=== PATIENT | female | born 1985 | race Caucasian/White ===

== ENCOUNTER 2016-06-23 19:44 | Emergency (ER) | payer MEDICAID ==
--- NOTE | 2016-06-23 20:19 | Emergency Department Record ---
History of Present Illness - General Chief complaint: Eye Problem Stated complaint: FB IN R EYE Time Seen by Provider: 06/23/16 20:18 Source: Patient Mode of Arrival: Ambulatory Limitations: No limitations - History of Present Illness Initial comments: The patient is here due to having R eye irritation for 8 hours. She was in the shower this evening and felt like something got into the R eye. She then flushed it out and the FB feeling never went away. There is no eye pain or blurred vision but she thinks she may have scratched the eye. Additionally she has had one day of a dry cough, body aches, runny nose and low grade fever. The patient does wear contacts but has not had them in since yesterday. chief complaint: Eye pain Onset/Timin -: Days(s) Onset Description: Sudden Location: Right eye Place: Home If Injury: None Severity: Mild Severity scale (1-10): 6 If Pain, Quality: Aching Consistency: Constant Context: Contact lens use Associated Symptoms: None Treatments Prior to Arrival: Removed contact lens - Related Data Visual acuity (L) = 20/: 30 Visual acuity (R) = 20/: 30 With correction: No (wears cont) Previous Rx's Medication Instructions Recorded Oseltamivir Phosphate [Tamiflu] 75 mg PO BID #10 capsule 06/23/16 Allergies Allergy/AdvReac Type Severity Reaction Status Date / Time venlafaxine HCl Allergy RASH Verified 06/23/16 20:16 [From Effexor] Travel Screening - Travel/Exposure Within Last 30 Days Have you traveled within the last 30 days?: No - Travel/Exposure Within Last Year Have you traveled outside the [place] in the last year?: No - Additonal Travel Details Have you been exposed to anyone with a communicable illness?: No - Travel Symptoms Symptom Screening: None Review of Systems Constitutional: Reports: Malaise. Denies: Chills, Fever Eyes: Reports: Eye pain. Denies: Eye discharge ENT: Reports: Congestion. Denies: Throat pain Respiratory: Reports: Cough. Denies: Dyspnea Past Medical History - SOCIAL HISTORY Smoking Status: Current every day smoker Alcohol Use: Occassional Drug Use: None - RESPIRATORY Hx Respiratory Disorders: Yes Hx Bronchitis: Yes - CARDIOVASCULAR Hx Cardio Disorders: No - NEURO Hx Neuro Disorders: No - GI Hx GI Disorders: No - Hx Genitourinary Disorders: No - ENDOCRINE Hx Endocrine Disorders: Yes Hx Thyroid Disease: Yes - MUSCULOSKELETAL Hx Musculoskeletal Disorders: No - PSYCH Hx Psych Problems: Yes Hx Anxiety: Yes Hx Depression: Yes - HEMATOLOGY/ONCOLOGY Hx Hematology/Oncology Disorders: No Family Medical History Any Significant Family History?: Yes Family Hx Comment (NOT TO BE USED IN PLACE OF ITEMS BELOW): none known Physical Exam - General General Appearance: Alert, Oriented x3, Cooperative, No acute distress - Head Head exam: Atraumatic, Normocephalic, Normal inspection - Eye Eye exam: Normal appearance, PERRL, EOMI, Other (There is no FB on direct visualization and no FB with flipping the R upper eyelid. The cornea is clear with no flourescein uptake.) With correction: No (wears cont) - ENT ENT exam: Normal exam, Mucous membranes moist, Normal external ear exam, TM's normal bilaterally. negative: Normal orophraynx Nasal Exam: Normal inspection Throat exam: Tonsillar erythema. negative: Normal inspection, Tonsillomegaly - Neck Neck exam: Normal inspection, Full ROM. negative: Tenderness - Respiratory Respiratory exam: Normal lung sounds bilaterally. negative: Respiratory distress - Cardiovascular Cardiovascular Exam: Regular rate, Normal rhythm, Normal heart sounds Course Vital Signs 06/23/16 20:08 Temperature 99.2 F Pulse Rate 83 Respiratory 17 Rate Blood Pressure 119/74 Pulse Ox 97 - Reevaluation(s) Reevaluation #1: I did discuss the issues with the patient. It appears she may have irritated the eye in the shower. I do not see a scratch or any abrasion or FB at this time. Additionally she most likely has Influenza so we will place her on Tamiflu. 06/23/16 20:34 Disposition Disposition: Discharge Clinical Impression: Irritation of eye Disposition: Home, Self-Care Condition: (1) Good Instructions: Conjunctivitis (ED), Upper Respiratory Infection (ED) Additional Instructions: Please use the Emycin opth. ointment in the R eye 4 times a day for 4-5 days. Please see your PCP or an eye doctor if not better in 1-2 days. Please take the Tamiflu as directed. Return to the ER if worse. Prescriptions: Oseltamivir Phosphate [Tamiflu] 75 mg PO BID #10 capsule Forms: Patient Portal Access Time of Disposition: 20:38
[2016-06-23] MEDS ORDERED: PROPARACAINE HCL OPTH 15ML BTL OPTH ONE (20:21)
[2016-06-23] MEDS ORDERED: ERYTHROMYCIN OPTH OINT 3.5GM OPTH ONE (20:29)
== END 2016-06-23 20:51 | disposition home or self-care (01) ==
LOC: ER 19:44
DX: H57.11 Ocular pain, right eye (principal); R05 Cough; R09.89 Other specified symptoms and signs involving the circulatory and respiratory systems
CPT/HCPCS: 99282

== ENCOUNTER 2016-09-09 17:29 | Emergency (ER) | payer MEDICAID ==
[2016-09-09] MEDS ORDERED: CEFTRIAXONE SODIUM 1 GM in 0.9 % SODIUM CHLORIDE 100ML 100 ML IVPB ONE (17:47)
--- NOTE | 2016-09-09 17:54 | Emergency Department Record ---
History of Present Illness - General Chief complaint: Extremity Problem Stated complaint: L LEG RED Time Seen by Provider: 09/09/16 17:43 Source: Patient Mode of Arrival: Ambulatory Limitations: No limitations - History of Present Illness Initial comments: The patient is here due to L leg pain, swelling, and redness. It started in the L knee area a few days ago with slight swelling and redness but that resolved. Then yesterday she noticed that her L lower leg was red, itchy, and slightly painful. There has not been any reported fever, chills, or any trauma. The patient denies any thigh or calf pain and also denies any CP, SOB, or AUBREY. She has no hx of PE, DVT, and no hx of any clotting disorders. MD Complaint: Extremity swelling Onset/Timin -: Days(s) Location: Left, Lower Leg History of Same: No Radiation: Distal Severity scale (1-10): 8 Quality: Burning, Stabbing Consistency: Constant Improves with: Nothing Worsens with: Nothing Associated Symptoms: Denies other symptoms - Related Data Previous Rx's Medication Instructions Recorded Cephalexin [Keflex] 500 mg PO QID #28 cap 09/09/16 Allergies Allergy/AdvReac Type Severity Reaction Status Date / Time venlafaxine HCl Allergy Intermediate RASH Verified 09/09/16 17:40 [From Effexor] Travel Screening - Travel/Exposure Within Last 30 Days Have you traveled within the last 30 days?: No Review of Systems Constitutional: Denies: Chills, Fever, Malaise Eyes: Denies: Eye discharge ENT: Denies: Congestion, Throat pain Respiratory: Denies: Cough, Dyspnea Past Medical History - SOCIAL HISTORY Smoking Status: Current every day smoker Alcohol Use: None Drug Use: None - RESPIRATORY Hx Respiratory Disorders: Yes Hx Bronchitis: Yes - CARDIOVASCULAR Hx Cardio Disorders: No - NEURO Hx Neuro Disorders: No - GI Hx GI Disorders: No - Hx Genitourinary Disorders: No - ENDOCRINE Hx Endocrine Disorders: Yes Hx Thyroid Disease: Yes - MUSCULOSKELETAL Hx Musculoskeletal Disorders: No - PSYCH Hx Psych Problems: Yes Hx Anxiety: Yes Hx Depression: Yes - HEMATOLOGY/ONCOLOGY Hx Hematology/Oncology Disorders: No Family Medical History Any Significant Family History?: No Family Hx Comment (NOT TO BE USED IN PLACE OF ITEMS BELOW): none known Physical Exam - General General Appearance: Alert, Oriented x3, Cooperative, No acute distress - Head Head exam: Atraumatic, Normocephalic, Normal inspection - Eye Eye exam: Normal appearance, PERRL - Respiratory Respiratory exam: Normal lung sounds bilaterally. negative: Respiratory distress - Cardiovascular Cardiovascular Exam: Regular rate, Normal rhythm, Normal heart sounds - Extremities Extremities exam: Full ROM, Normal capillary refill, Tenderness (The erythematous areas of the L lower leg are slighty tender and warm. There are no wounds evident.), Other (The L lower leg is NVI.). negative: Normal inspection (There is a lacy erythematous rash to the L lower leg below the calf posterior > anterior.), Calf tenderness (The calf is nontender with a neg Melanie's sign. There is no thigh or posterior knee tenderness.), Joint swelling, Pedal edema Course Vital Signs 09/09/16 17:32 Temperature 98.7 F Pulse Rate 97 H Respiratory 20 Rate Blood Pressure 131/97 Pulse Ox 99 - Reevaluation(s) Reevaluation #1: The patient is doing very well at this time. She is resting comfortably and we are waiting on the leg doppler results. I did discuss the lab results with the patient and the need for F/U. 09/09/16 18:44 Medical Decision Making - Data Complexity MDM Data: Labs Ordered and/or Reviewed, X-Ray Ordered and/or Reviewed - Lab Data Result diagrams: 09/09/16 17:55 09/09/16 17:55 - Radiology Data Radiology results: Report reviewed (L Leg Venous Doppler: Neg) Disposition Disposition: Discharge Clinical Impression: Cellulitis of left lower extremity Disposition: Home, Self-Care Condition: (1) Good Instructions: Cellulitis (ED) Additional Instructions: Please take Tylenol or Motrin for pain. Start the Keflex this evening. Use warm compresses and elevate the leg for the next day and a half. Please see your PCP for recheck later this week. Please return to the ER for any increased pain, swelling, redness or fever. Prescriptions: Cephalexin [Keflex] 500 mg PO QID #28 cap Forms: Patient Portal Access Time of Disposition: 18:47
[2016-09-09 18:00] LABS: BASO % 0.3 % (0-6); EOS % 1.6 % (0-6); GRAN % 55.4 % (47-80); HEMATOCRIT 37.4 % (35.0-47.0); HEMOGLOBIN 12.3 gm/dl (11.6-16.0); LYMPH % 34.4 % (16-45); MEAN CELL VOLUME 89.9 fl (81-97); MEAN CORPUSCULAR HEMOGLOBIN 29.6 pg (27-33); MEAN CORPUSCULAR HGB CONC 32.9 g/dl (32-36); MEAN PLATELET VOLUME 9.4 fl (7.4-10.4); MONO % 8.3 % (0-9); PLATELET COUNT 374 K/uL (130-400); RED BLOOD COUNT 4.16 M/uL (3.80-5.40); RED CELL DISTRIBUTION WIDTH 12.5 % (11.5-14.5)
[2016-09-09 18:14] LABS: BLOOD UREA NITROGEN 5 mg/dL (7-17); C-REACTIVE PROTEIN 1.3 mg/dL (0.0-0.9); CREATININE 0.6 mg/dL (0.52-1.04); EST GLOMERULAR FILTRATION RATE > 60 ml/min; GLUCOSE,RANDOM 91 mg/dL (70-110)
[2016-09-09] MEDS ORDERED: CEPHALEXIN 500 MG CAPSULE PO STA (19:04)
--- NOTE | 2016-09-09 19:54 | Emergency Department Record ---
History of Present Illness - General Chief complaint: Extremity Problem Stated complaint: L LEG RED Time Seen by Provider: 09/09/16 17:43 Source: Patient Mode of Arrival: Ambulatory Limitations: No limitations - History of Present Illness Onset/Timin -: Days(s) Location: Left, Lower Leg History of Same: No Radiation: Distal Severity scale (1-10): 8 Quality: Burning, Stabbing Consistency: Constant Improves with: Nothing Worsens with: Nothing Associated Symptoms: Denies other symptoms - Related Data Previous Rx's Medication Instructions Recorded Cephalexin [Keflex] 500 mg PO QID #28 cap 09/09/16 Allergies Allergy/AdvReac Type Severity Reaction Status Date / Time venlafaxine HCl Allergy Intermediate RASH Verified 09/09/16 17:40 [From Effexor] Travel Screening - Travel/Exposure Within Last 30 Days Have you traveled within the last 30 days?: No Review of Systems Constitutional: Denies: Chills, Fever, Malaise Eyes: Denies: Eye discharge ENT: Denies: Congestion, Throat pain Respiratory: Denies: Cough, Dyspnea Past Medical History - SOCIAL HISTORY Smoking Status: Current every day smoker Alcohol Use: None Drug Use: None - RESPIRATORY Hx Respiratory Disorders: Yes Hx Bronchitis: Yes - CARDIOVASCULAR Hx Cardio Disorders: No - NEURO Hx Neuro Disorders: No - GI Hx GI Disorders: No - Hx Genitourinary Disorders: No - ENDOCRINE Hx Endocrine Disorders: Yes Hx Thyroid Disease: Yes - MUSCULOSKELETAL Hx Musculoskeletal Disorders: No - PSYCH Hx Psych Problems: Yes Hx Anxiety: Yes Hx Depression: Yes - HEMATOLOGY/ONCOLOGY Hx Hematology/Oncology Disorders: No Family Medical History Any Significant Family History?: No Family Hx Comment (NOT TO BE USED IN PLACE OF ITEMS BELOW): none known Physical Exam - General Limitations: No limitations Course Vital Signs 09/09/16 09/09/16 17:32 19:02 Temperature 98.7 F Pulse Rate 97 H Pulse Rate [ 77 Pulse Ox Probe] Respiratory 20 20 Rate Blood Pressure 131/97 Blood Pressure 117/77 [Left Arm] Pulse Ox 99 99 - Reevaluation(s) Reevaluation #1: 09/09/16 19:52 Venous Doppler LLE: Questionable small thrombus in the distal calf vein adjacent to the ankle, no evidence for DVT to the left lower extremity. Patient was updated on her venous doppler report that is negative for DVT but possible superficial thrombus may be present adjacent to the ankle, recommended NSAIDs in addition to Keflex for treatment of the patient's symptoms with return for any worsening of her symptoms. Medical Decision Making - Lab Data Result diagrams: 09/09/16 17:55 09/09/16 17:55 Lab Results 09/09/16 09/09/16 Range/Units 17:55 17:55 WBC 12.0 (4.2-12.2) K/uL RBC 4.16 (3.80-5.40) M/uL Hgb 12.3 (11.6-16.0) gm/dl Hct 37.4 (35.0-47.0) % MCV 89.9 (81-97) fl MCH 29.6 (27-33) pg MCHC 32.9 (32-36) g/dl RDW 12.5 (11.5-14.5) % Plt Count 374 (130-400) K/uL MPV 9.4 (7.4-10.4) fl Gran % 55.4 (47-80) % Lymphocytes % 34.4 (16-45) % Monocytes % 8.3 (0-9) % Eosinophils % 1.6 (0-6) % Basophils % 0.3 (0-6) % Sodium 139 (136-145) mmol/L Potassium 3.7 (3.5-5.1) mmol/L Chloride 103 (98-107) mmol/L Carbon Dioxide 27.0 (22-30) mmol/L Anion Gap 9.0 (7-16) BUN 5 L (7-17) mg/dL Creatinine 0.6 (0.52-1.04) mg/dL Estimated GFR > 60 ml/min Random Glucose 91 (70-110) mg/dL Calcium 9.4 (8.5-10.1) mg/dL C-Reactive Protein 1.3 H (0.0-0.9) mg/dL Disposition Clinical Impression: Left leg cellulitis Instructions: Cellulitis (ED) Additional Instructions: Please take Tylenol or Motrin for pain. Start the Keflex this evening. Use warm compresses and elevate the leg for the next day and a half. Please see your PCP for recheck later this week. Please return to the ER for any increased pain, swelling, redness or fever. Prescriptions: Cephalexin [Keflex] 500 mg PO QID #28 cap Forms: Patient Portal Access
--- NOTE | 2016-09-17 08:01 | US VENOUS DOPPLER REPORT ---
EXAM: DUPLEX DOPPLER ULTRASOUND EXAMINATION OF THE LEFT LOWER EXTREMITY HISTORY: PATIENT HAS PAIN IN THE LEFT LOWER EXTREMITY. TECHNIQUE: Real-time mcgee scale and Duplex Doppler ultrasound examination of the left lower extremity veins was performed. FINDINGS: The contour, caliber, flow, compression and augmentation of the left common femoral, greater saphenous, superficial femoral, popliteal, posterior tibial, peroneal, and anterior tibial veins are within normal limits. There is no sonographic evidence of a deep venous thrombosis within these structures. Within the distal left calf, in the region of pain along the posterior aspect of the ankle, there is diminished flow on the Duplex Doppler evaluation within the region of the anterior wall. This finding may represent a thrombus, however , compressibility in this region is limited. IMPRESSION: 1. WITHIN THE DISTAL LEFT CALF VEIN, ADJACENT TO THE ANKLE, IN THE REGION OF CONCERN, THERE MAY BE A QUESTIONABLE SMALL VENOUS THROMBUS. FULL EVALUATION OF THIS REGION IS LIMITED DUE TO LACK OF COMPRESSIBILITY. 2. OTHERWISE, THERE IS NO SONOGRAPHIC EVIDENCE OF A DEEP VENOUS THROMBOSIS WITHIN THE MAJOR LEFT LOWER EXTREMITY DEEP VENOUS STRUCTURES DISCUSSED ABOVE. JOB NUMBER: [id number] [facility]
== END 2016-09-09 19:57 | disposition home or self-care (01) ==
LOC: ER 17:29
DX: L03.116 Cellulitis of left lower limb (principal); M79.662 Pain in left lower leg
CPT/HCPCS: 80048; 85025; 86140; 96374; 99284

== ENCOUNTER 2016-09-10 12:09 | Emergency (ER) | payer MEDICAID ==
--- NOTE | 2016-09-10 13:24 | Emergency Department Record ---
History of Present Illness - General Chief Complaint: Recheck - Other Stated Complaint: RECHECK LEG Time Seen by Provider: 09/10/16 12:47 Source: Patient Mode of arrival: Ambulatory Limitations: No limitations - History of Present Illness Initial Comments: recheck cellulitis. pt feels in some ways it is better and some ways it is worse. rash is painful. pt has no idea how she got it. Complaint: Wound re-check Onset/Timin -: Days(s) Initial Visit For: Other Returns Today for: Cellulitis follow-up Symptoms Since Prior Visit: Worsening redness Associated Symptoms: Nausea Treatments Prior to Arrival: Given antibiotics on initial visit - Related Data Previous Rx's Medication Instructions Recorded Cephalexin [Keflex] 500 mg PO QID #28 cap 09/09/16 Sulfamethoxazole/Trimethoprim 1 each PO BID #20 tablet 09/10/16 [Bactrim Ds Tablet] Allergies Allergy/AdvReac Type Severity Reaction Status Date / Time venlafaxine HCl Allergy Intermediate RASH Verified 09/10/16 12:18 [From [facility]s Avanza] Travel Screening - Travel/Exposure Within Last 30 Days Have you traveled within the last 30 days?: No Review of Systems Reviewed: No additional complaints except as noted below Constitutional: Reports: As per HPI. Denies: Chills, Fever, Malaise, Night sweats, Weakness, Weight change Eyes: Reports: As per HPI. Denies: Eye discharge, Eye pain, Photophobia, Vision change ENT: Reports: As per HPI. Denies: Congestion, Dental pain, Ear pain, Epistaxis , Hearing loss, Throat pain Respiratory: Reports: As per HPI. Denies: Cough, Dyspnea, Hemoptysis, Stridor, Wheezes Cardiovascular: Reports: As per HPI. Denies: Arrhythmia, Chest pain, Dyspnea on exertion, Edema, Murmurs, Orthopnea, Palpitations, Paroxysmal nocturnal dyspnea, Rheumatic Fever, Syncope Endocrine: Reports: As per HPI. Denies: Fatigue, Heat or cold intolerance, Polydipsia, Polyuria Gastrointestinal: Reports: As per HPI. Denies: Abdominal pain, Constipation, Diarrhea, Hematemesis, Hematochezia, Melena, Nausea, Vomiting Genitourinary: Reports: As per HPI. Denies: Abnormal menses, Discharge, Dyspareunia, Dysuria, Frequency, Hematuria, Incontinence, Retention, Urgency Musculoskeletal: Reports: As per HPI. Denies: Arthralgia, Back pain, Gout, Joint swelling, Myalgia, Neck pain Skin: Reports: As per HPI. Denies: Bruising, Change in color, Change in hair/ nails, Lesions, Pruritus, Rash Neurological: Reports: As per HPI. Denies: Abnormal gait, Confusion, Headache, Numbness, Paresthesias, Seizure, Tingling, Tremors, Vertigo, Weakness Psychiatric: Reports: As per HPI. Denies: Anxiety, Auditory hallucinations, Depression, Homicidal thoughts, Suicidal thoughts, Visual hallucinations Hematological/Lymphatic: Reports: As per HPI. Denies: Anemia, Blood Clots, Easy bleeding, Easy bruising, Swollen glands Past Medical History - SOCIAL HISTORY Smoking Status: Current every day smoker Alcohol Use: None Drug Use: None - RESPIRATORY Hx Respiratory Disorders: Yes Hx Bronchitis: Yes - CARDIOVASCULAR Hx Cardio Disorders: No - NEURO Hx Neuro Disorders: No - GI Hx GI Disorders: No - Hx Genitourinary Disorders: No - ENDOCRINE Hx Endocrine Disorders: Yes Hx Thyroid Disease: Yes - MUSCULOSKELETAL Hx Musculoskeletal Disorders: No - PSYCH Hx Psych Problems: Yes Hx Anxiety: Yes Hx Depression: Yes - HEMATOLOGY/ONCOLOGY Hx Hematology/Oncology Disorders: No Family Medical History Any Significant Family History?: No Family Hx Comment (NOT TO BE USED IN PLACE OF ITEMS BELOW): none known Physical Exam - General General Appearance: Alert, Oriented x3, Cooperative, Mild distress - Head Head exam: Normal inspection - Eye Eye exam: Normal appearance, PERRL, EOMI Pupils: Normal accommodation - ENT ENT exam: Normal exam, Mucous membranes moist, Normal external ear exam, Normal orophraynx Ear exam: Normal external inspection. negative: External canal tenderness Nasal Exam: Normal inspection. negative: Discharge, Sinus tenderness Mouth exam: Normal external inspection, Tongue normal Teeth exam: Normal inspection. negative: Dental caries Throat exam: Normal inspection. negative: Tonsillar erythema, Tonsillar exudate - Neck Neck exam: Normal inspection, Full ROM. negative: Tenderness - Respiratory Respiratory exam: Normal lung sounds bilaterally. negative: Respiratory distress - Cardiovascular Cardiovascular Exam: Regular rate, Normal rhythm, Normal heart sounds - GI/Abdominal GI/Abdominal exam: Soft, Normal bowel sounds. negative: Tenderness - Rectal Rectal exam: Deferred - exam: Deferred - Extremities Extremities exam: Normal inspection, Full ROM, Normal capillary refill, Tenderness Image of Full Body: 1 - erythema and tenderness 2 - erythema and tenderness - Back Back exam: Reports: Normal inspection, Full ROM. Denies: Muscle spasm, Rash noted, Tenderness - Neurological Neurological exam: Alert, CN II-XII intact, Normal gait, Oriented X3 - Psychiatric Psychiatric exam: Normal affect, Normal mood - Skin Skin exam: Dry, Intact, Normal color, Warm Course Vital Signs 09/10/16 12:19 Temperature 98.6 F Pulse Rate 79 Respiratory 20 Rate Blood Pressure 115/67 Pulse Ox 98 Disposition Disposition: Discharge Clinical Impression: Cellulitis Qualifiers: Site of cellulitis: extremity Site of cellulitis of extremity: lower extremity Laterality: right Qualified Code(s): L03.115 - Cellulitis of right lower limb Disposition: Home, Self-Care Condition: (1) Good Additional Instructions: follow up with family doctor on . if rash worsens return here sooner. elevate leg. Prescriptions: Sulfamethoxazole/Trimethoprim [Bactrim Ds Tablet] 1 each PO BID #20 tablet Forms: Patient Portal Access
--- NOTE | 2016-09-10 13:30 | Emergency Department Record ---
History of Present Illness - General Chief Complaint: Recheck - Other Stated Complaint: RECHECK LEG Time Seen by Provider: 09/10/16 12:47 Source: Patient Mode of arrival: Ambulatory Limitations: No limitations - History of Present Illness Onset/Timin -: Days(s) Initial Visit For: Other Returns Today for: Cellulitis follow-up Symptoms Since Prior Visit: Worsening redness Associated Symptoms: Nausea Treatments Prior to Arrival: Given antibiotics on initial visit - Related Data Previous Rx's Medication Instructions Recorded Cephalexin [Keflex] 500 mg PO QID #28 cap 09/09/16 Sulfamethoxazole/Trimethoprim 1 each PO BID #20 tablet 09/10/16 [Bactrim Ds Tablet] Allergies Allergy/AdvReac Type Severity Reaction Status Date / Time venlafaxine HCl Allergy Intermediate RASH Verified 09/10/16 12:18 [From Effexor] Travel Screening - Travel/Exposure Within Last 30 Days Have you traveled within the last 30 days?: No Review of Systems Constitutional: Reports: As per HPI. Denies: Chills, Fever, Malaise, Night sweats, Weakness, Weight change Eyes: Reports: As per HPI. Denies: Eye discharge, Eye pain, Photophobia, Vision change ENT: Reports: As per HPI. Denies: Congestion, Dental pain, Ear pain, Epistaxis , Hearing loss, Throat pain Respiratory: Reports: As per HPI. Denies: Cough, Dyspnea, Hemoptysis, Stridor, Wheezes Cardiovascular: Reports: As per HPI. Denies: Arrhythmia, Chest pain, Dyspnea on exertion, Edema, Murmurs, Orthopnea, Palpitations, Paroxysmal nocturnal dyspnea, Rheumatic Fever, Syncope Endocrine: Reports: As per HPI. Denies: Fatigue, Heat or cold intolerance, Polydipsia, Polyuria Gastrointestinal: Reports: As per HPI. Denies: Abdominal pain, Constipation, Diarrhea, Hematemesis, Hematochezia, Melena, Nausea, Vomiting Genitourinary: Reports: As per HPI. Denies: Abnormal menses, Discharge, Dyspareunia, Dysuria, Frequency, Hematuria, Incontinence, Retention, Urgency Musculoskeletal: Reports: As per HPI. Denies: Arthralgia, Back pain, Gout, Joint swelling, Myalgia, Neck pain Skin: Reports: As per HPI. Denies: Bruising, Change in color, Change in hair/ nails, Lesions, Pruritus, Rash Neurological: Reports: As per HPI. Denies: Abnormal gait, Confusion, Headache, Numbness, Paresthesias, Seizure, Tingling, Tremors, Vertigo, Weakness Psychiatric: Reports: As per HPI. Denies: Anxiety, Auditory hallucinations, Depression, Homicidal thoughts, Suicidal thoughts, Visual hallucinations Hematological/Lymphatic: Reports: As per HPI. Denies: Anemia, Blood Clots, Easy bleeding, Easy bruising, Swollen glands Past Medical History - SOCIAL HISTORY Smoking Status: Current every day smoker Alcohol Use: None Drug Use: None - RESPIRATORY Hx Respiratory Disorders: Yes Hx Bronchitis: Yes - CARDIOVASCULAR Hx Cardio Disorders: No - NEURO Hx Neuro Disorders: No - GI Hx GI Disorders: No - Hx Genitourinary Disorders: No - ENDOCRINE Hx Endocrine Disorders: Yes Hx Thyroid Disease: Yes - MUSCULOSKELETAL Hx Musculoskeletal Disorders: No - PSYCH Hx Psych Problems: Yes Hx Anxiety: Yes Hx Depression: Yes - HEMATOLOGY/ONCOLOGY Hx Hematology/Oncology Disorders: No Family Medical History Any Significant Family History?: No Family Hx Comment (NOT TO BE USED IN PLACE OF ITEMS BELOW): none known Physical Exam - General Limitations: No limitations Course Vital Signs 09/10/16 12:19 Temperature 98.6 F Pulse Rate 79 Respiratory 20 Rate Blood Pressure 115/67 Pulse Ox 98 Disposition Disposition: Discharge Clinical Impression: Cellulitis Qualifiers: Site of cellulitis: extremity Site of cellulitis of extremity: lower extremity Laterality: right Qualified Code(s): L03.115 - Cellulitis of right lower limb Disposition: Home, Self-Care Condition: (1) Good Instructions: Cellulitis (ED) Additional Instructions: follow up with family doctor on . if rash worsens return here sooner. elevate leg. Prescriptions: Sulfamethoxazole/Trimethoprim [Bactrim Ds Tablet] 1 each PO BID #20 tablet Forms: Patient Portal Access
== END 2016-09-10 13:36 | disposition home or self-care (01) ==
LOC: ER 12:09
DX: L03.115 Cellulitis of right lower limb (principal)

== ENCOUNTER 2017-02-09 17:51 | Emergency (ER) | payer MEDICAID ==
--- NOTE | 2017-02-09 19:28 | Emergency Department Record ---
History of Present Illness - General Chief complaint: Pain Stated complaint: LT RIB PAIN,CHEST CONGESTION Time Seen by Provider: 02/09/17 19:21 Source: Patient Mode of Arrival: Ambulatory Limitations: No limitations - History of Present Illness Initial comments: The patient is here due to noticing L lower rib pain after bending over tonight. She then felt her ribs and felt like the L side was swollen. She denies any abdominal pain, fever, chills, cough, SOB, or dyspnea. The pain is only present with twisting or bending. MD Complaint: Other Onset/Timin -: Days(s) Location: Left Radiation: None Quality: Aching Consistency: Intermittent - Related Data Previous Rx's Medication Instructions Recorded Naproxen [Naprosyn] 500 mg PO BID #14 tablet. 02/09/17 Allergies Allergy/AdvReac Type Severity Reaction Status Date / Time venlafaxine HCl Allergy Intermediate RASH Verified 09/10/16 12:18 [From Effexor] Review of Systems Constitutional: Denies: Chills, Fever Eyes: Denies: Eye discharge ENT: Denies: Congestion Respiratory: Denies: Cough, Dyspnea Past Medical History - SOCIAL HISTORY Smoking Status: Current every day smoker Drug Use: None - RESPIRATORY Hx Respiratory Disorders: Yes Hx Bronchitis: Yes - CARDIOVASCULAR Hx Cardio Disorders: No - NEURO Hx Neuro Disorders: No - GI Hx GI Disorders: No - Hx Genitourinary Disorders: No - ENDOCRINE Hx Endocrine Disorders: Yes Hx Thyroid Disease: Yes - MUSCULOSKELETAL Hx Musculoskeletal Disorders: No - PSYCH Hx Psych Problems: Yes Hx Anxiety: Yes Hx Depression: Yes - HEMATOLOGY/ONCOLOGY Hx Hematology/Oncology Disorders: No Family Medical History Family Hx Comment (NOT TO BE USED IN PLACE OF ITEMS BELOW): none known Physical Exam - General General Appearance: Alert, Oriented x3, Cooperative, No acute distress - Head Head exam: Atraumatic, Normocephalic, Normal inspection - Eye Eye exam: Normal appearance, PERRL - Neck Neck exam: Normal inspection, Full ROM. negative: Tenderness - Respiratory Respiratory exam: Normal lung sounds bilaterally, Chest wall tenderness (There is tenderness to palpation over the L anterior lower ribs which does reproduce the pain. There is no swelling, bruising, or edema noted.). negative: Respiratory distress - Cardiovascular Cardiovascular Exam: Regular rate, Normal rhythm, Normal heart sounds - GI/Abdominal GI/Abdominal exam: Soft, Normal bowel sounds. negative: Rebound, Rigid, Tenderness - Extremities Extremities exam: Normal inspection, Full ROM, Normal capillary refill. negative: Tenderness Course Vital Signs 02/09/17 19:13 Temperature 99.0 F Pulse Rate [ 82 Pulse Ox Probe] Respiratory 18 Rate Blood Pressure 118/80 [Left Arm] Pulse Ox 99 - Reevaluation(s) Reevaluation #1: I did explain to the patient that the ribs do not demonstrate any bony abnormality. We will place the patient on Naprosyn and have her F/U with her PCP if not better in 3 days. 02/09/17 20:34 Medical Decision Making - Data Complexity MDM Data: X-Ray Ordered and/or Reviewed - Radiology Data Radiology results: Report reviewed (Chest and L ribs: Neg.) Disposition Disposition: Discharge Clinical Impression: Rib pain on left side Disposition: Home, Self-Care Condition: (1) Good Instructions: Chest Wall Pain (ED) Additional Instructions: Please take the Naprosyn for pain and rest with no lifting for 3 days. Please see your PCP if not better in 3 days. Return to the ER if worse. Prescriptions: Naproxen [Naprosyn] 500 mg PO BID #14 tablet.dr Forms: Patient Portal Access Time of Disposition: 20:36 Quality - Quality Measures Quality Measures: N/A - Blood Pressure Screening View Details: Yes Does Patient Have Any of the Following: No Blood Pressure Classification: Pre-Hypertensive BP Reading Systolic Measurement: 118 Diastolic Measurement: 80 Screening for High Blood Pressure: < Pre-Hypertensive BP, F/U Documented > [ G8950] Pre-Hypertensive Follow-up Interventions: Referral to alternative/primary care provider.
--- NOTE | 2017-02-10 13:16 | RADIOLOGY REPORT ---
EXAM: LEFT RIBS WITH A PA CHEST HISTORY: LEFT LOWER RIB PAIN, NO KNOWN INJURY. TECHNIQUE: AP and oblique views of the left ribs and a PA view of the chest were obtained. Comparison: Two view chest 04/03/15. No prior left rib series. FINDINGS: The left ribs appear intact with no definite fracture or other lesion identified involving the left ribs. No pleural effusion or pneumothorax on the left as well. The heart size is normal. Curvilinear metallic density overlying the lower lumbar spine on the PA chest may be a periumbilical ornamental device and clinical correlation is suggested. IMPRESSION: 1. THE LEFT RIBS APPEAR NEGATIVE. 2. CURVILINEAR METALLIC DENSITY OVERLYING THE L4 VERTEBRA ON THE PA CHEST MAY BE A PERIUMBILICAL ORNAMENTAL DEVICE AND CLINICAL CORRELATION IS SUGGESTED. JOB NUMBER: [id number] MTDD
== END 2017-02-09 20:44 | disposition home or self-care (01) ==
LOC: ER 17:51
DX: R07.81 Pleurodynia (principal)
CPT/HCPCS: 99283

== ENCOUNTER 2017-04-04 05:13 | Emergency (ER) | payer MEDICAID ==
[2017-04-04] MEDS ORDERED: PREDNISONE 20 MG TAB PO ONE (05:20)
--- NOTE | 2017-04-04 05:26 | Emergency Department Record ---
History of Present Illness - General Chief complaint: Rash Stated complaint: RASH Time Seen by Provider: 04/04/17 05:20 Source: Patient Mode of Arrival: Ambulatory Limitations: No limitations - History of Present Illness Initial comments: 31 yo female presents with a rash to the face that started about 2-3 hours ago. She woke up to get ready for work and noted puffiness and lid swelling around both eyes. The sensation is a burning feeling. No blisters. No fevers. She states she has very sensitive skin and reacts to various things. She is unaware of any changes to her foods, soaps, shampoos or make up. No swelling in the throat or of the lips. No other rash or areas of the body affected. MD complaint: Rash Onset/Timin -: Hour(s) Location: Face Severity: Moderate Quality: Burning Consistency: Constant Improves with: None Worsens with: None Context: None Associated symptoms: Denies other symptoms Treatments Prior to Arrival: None - Related Data Previous Rx's Medication Instructions Recorded Prednisone [Prednisone 20Mg] 20 mg PO BID #10 tab 04/04/17 Allergies Allergy/AdvReac Type Severity Reaction Status Date / Time venlafaxine HCl Allergy Intermediate RASH Unverified 02/11/17 08:03 [From Effexor] Travel Screening - Travel/Exposure Within Last 30 Days Have you traveled within the last 30 days?: No - Travel/Exposure Within Last Year Have you traveled outside the [place] in the last year?: No - Additonal Travel Details Have you been exposed to anyone with a communicable illness?: No - Travel Symptoms Symptom Screening: None Review of Systems Constitutional: Denies: Chills, Fever, Malaise, Weakness Eyes: Denies: Eye discharge, Eye pain, Photophobia, Vision change ENT: Denies: Congestion, Throat pain Respiratory: Denies: Cough, Dyspnea, Hemoptysis, Stridor, Wheezes Cardiovascular: Denies: Chest pain Endocrine: Denies: Fatigue Gastrointestinal: Denies: Abdominal pain, Diarrhea, Nausea, Vomiting Genitourinary: Denies: Dysuria, Urgency Musculoskeletal: Denies: Arthralgia, Back pain, Myalgia Skin: Reports: As per HPI, Change in color, Rash. Denies: Bruising Neurological: Denies: Headache, Numbness, Tingling Psychiatric: Denies: Anxiety Hematological/Lymphatic: Denies: Blood Clots, Easy bleeding, Easy bruising, Swollen glands Past Medical History - SOCIAL HISTORY Smoking Status: Current every day smoker Alcohol Use: None Drug Use: None - RESPIRATORY Hx Respiratory Disorders: Yes Hx Bronchitis: Yes - CARDIOVASCULAR Hx Cardio Disorders: No - NEURO Hx Neuro Disorders: No - GI Hx GI Disorders: No - Hx Genitourinary Disorders: No - ENDOCRINE Hx Endocrine Disorders: Yes Hx Thyroid Disease: Yes - MUSCULOSKELETAL Hx Musculoskeletal Disorders: No - PSYCH Hx Psych Problems: Yes Hx Anxiety: Yes Hx Depression: Yes - HEMATOLOGY/ONCOLOGY Hx Hematology/Oncology Disorders: No Family Medical History Any Significant Family History?: No Family Hx Comment (NOT TO BE USED IN PLACE OF ITEMS BELOW): none known Physical Exam - General General Appearance: Alert, Oriented x3, Cooperative, No acute distress Limitations: No limitations - Head Head exam: negative: Normal inspection Head exam detail: Other (Rash ) Image of Face/Head: 1 - mild swelling with erythema around both eyes, no injection of the eyes, no tears, no blisters, mild edema of the lids - Eye Eye exam: EOMI, Periorbital swelling. negative: Conjunctival injection, Scleral icterus Pupils: negative: Irregular, Unequal - ENT ENT exam: Mucous membranes dry, Mucous membranes moist, Normal orophraynx Ear exam: Normal external inspection Nasal Exam: Normal inspection Mouth exam: Normal external inspection Teeth exam: Normal inspection Throat exam: negative: Normal inspection, Tonsillar erythema, Tonsillomegaly, Tonsillar exudate, R peritonsillar mass, L peritonsillar mass - Neck Neck exam: Normal inspection, Full ROM. negative: Lymphadenopathy, Tenderness - Respiratory Respiratory exam: Normal lung sounds bilaterally. negative: Respiratory distress - Cardiovascular Cardiovascular Exam: Regular rate, Normal rhythm, Normal heart sounds - Rectal Rectal exam: Deferred - exam: Deferred - Extremities Extremities exam: Normal inspection - Back Back exam: Reports: Normal inspection - Neurological Neurological exam: Alert, Oriented X3 - Psychiatric Psychiatric exam: Normal affect, Normal mood - Skin Skin exam: Dry, Intact, Normal color, Warm Course Vital Signs 04/04/17 05:15 Temperature 98.9 F Pulse Rate 100 H Respiratory 20 Rate Blood Pressure 136/102 Pulse Ox 100 Disposition Disposition: Discharge Clinical Impression: Rash Allergic reaction Qualifiers: Encounter type: initial encounter Qualified Code(s): T78.40XA - Allergy, unspecified, initial encounter Disposition: Home, Self-Care Condition: (1) Good Instructions: Urticaria (ED), Acute Rash (ED) Additional Instructions: You may take Benadryl every 4-6 hour Take the prednisone twice daily Apply ice or cold compresses to minimize swelling Return if worse, spreading, fever or any new concerns Prescriptions: Prednisone [Prednisone 20Mg] 20 mg PO BID #10 tab Time of Disposition: 05:27 Quality - Quality Measures Quality Measures: N/A - Blood Pressure Screening Does Patient Have Any of the Following: No Blood Pressure Classification: Hypertensive Reading Systolic Measurement: 136 Diastolic Measurement: 102 Screening for High Blood Pressure: < Pre-Hypertensive BP, F/U Documented > [ G8950] Pre-Hypertensive Follow-up Interventions: Referral to alternative/primary care provider.
== END 2017-04-04 05:31 | disposition home or self-care (01) ==
LOC: ER 05:13
DX: L23.9 Allergic contact dermatitis, unspecified cause (principal)
CPT/HCPCS: 99282; J7512

== ENCOUNTER 2017-07-03 12:33 | Day surgery (SDC) | payer MEDICAID ==
[2017-07-03] MEDS ORDERED: LIDOCAINE 2% MDV (20MG/ML) 20ML VIAL IV ONE (12:34)
[2017-07-03] MEDS ORDERED: MIDAZOLAM HCL 2MG/2ML VIAL IV ONE (12:34)
[2017-07-03] MEDS ORDERED: FENTANYL PF 100MCG/2ML VIAL IV ONE (12:34)
[2017-07-03] MEDS ORDERED: PROPOFOL 10 MG/ML VIAL IV ONE (12:34)
--- NOTE | 2017-07-04 12:50 | Operative Note ---
DATE OF SURGERY: 07/03/2017 OPERATION: ESOPHAGOGASTRODUODENOSCOPY with biopsy. PREOPERATIVE DIAGNOSIS: Heartburn and dysphagia despite therapy. POSTOPERATIVE DIAGNOSES: 1. Erosive esophagitis. 2. Hiatal hernia. PROCEDURE: After informed consent was obtained from the patient, she was placed in the left lateral decubitus position in the endoscopy suite, sedated and monitored by the department of anesthesia. Once sedated, a well-lubricated [id number] gastroscope was placed in the posterior oropharynx and under direct visualization passed to the proximal esophagus. The endoscope was advanced through the proximal, mid, and distal esophagus. The GE junction was patulous at the level of the lower esophageal sphincter. The squamocolumnar border was irregular with several erosive changes. There were no strictures or changes that would suggest eosinophilic esophagitis noted. The gastric body, antrum, pylorus, duodenal bulb and sweep were unrevealing. J-turn views of the proximal stomach were unremarkable other than a patulous GE junction. The endoscope was straightened. GE junction biopsies were obtained. The endoscope removed from the patient with no new findings noted. RECOMMENDATIONS: The patient should continue [id number] PPI and discontinue her H2 receptor antagonist. Further recommendations will be forthcoming when tissue histology is available. As always, thank you for allowing me to participate in the healthcare of your patients. CC: BENSON Mcmillan
== END 2017-07-03 14:18 | disposition home or self-care (01) ==
LOC: HOP 12:33
PROVIDERS: ATTEND Internal Medicine Gastroenterology
DX: R12 Heartburn (principal); K44.9 Diaphragmatic hernia without obstruction or gangrene; Z72.0 Tobacco use; K20.8 Other esophagitis
CPT/HCPCS: 43239; 00731; J3010

== ENCOUNTER 2017-10-11 12:37 | Emergency (ER) | payer MEDICAID ==
[2017-10-11] MEDS ORDERED: PROPARACAINE HCL OPTH 15ML BTL OPTH ONE (14:08)
--- NOTE | 2017-10-11 14:26 | Emergency Department Record ---
History of Present Illness - General Chief complaint: Eye Problem Stated complaint: R EYE FEELS LIKE SOMETHING IS IT Time Seen by Provider: 10/11/17 13:31 Source: Patient Mode of Arrival: Ambulatory Limitations: No limitations - History of Present Illness Initial comments: pt woke up w eye swelling and feeling like something is in it. it has been tearing chief complaint: Eye pain, Foreign body Onset/Timin -: Hour(s) Onset Description: Sudden, Awoke with symptoms Location: Right eye Place: Home Eye Symptoms: Other Severity: Mild Consistency: Constant Associated Symptoms: None Treatments Prior to Arrival: None - Related Data Visual acuity (L) = 20/: 40 Visual acuity (R) = 20/: 40 With correction: No Allergies Allergy/AdvReac Type Severity Reaction Status Date / Time venlafaxine HCl Allergy Intermediate RASH Verified 04/04/17 05:21 [From Effexor] Travel Screening - Travel/Exposure Within Last 30 Days Have you traveled within the last 30 days?: No - Travel/Exposure Within Last Year Have you traveled outside the [place] in the last year?: No - Additonal Travel Details Have you been exposed to anyone with a communicable illness?: No - Travel Symptoms Symptom Screening: None Review of Systems Reviewed: No additional complaints except as noted below Constitutional: Reports: As per HPI. Denies: Chills, Fever, Malaise, Night sweats, Weakness, Weight change Eyes: Reports: As per HPI, Eye discharge, Eye pain. Denies: Photophobia, Vision change ENT: Reports: As per HPI. Denies: Congestion, Dental pain, Ear pain, Epistaxis , Hearing loss, Throat pain Respiratory: Reports: As per HPI. Denies: Cough, Dyspnea, Hemoptysis, Stridor, Wheezes Cardiovascular: Reports: As per HPI. Denies: Arrhythmia, Chest pain, Dyspnea on exertion, Edema, Murmurs, Orthopnea, Palpitations, Paroxysmal nocturnal dyspnea, Rheumatic Fever, Syncope Endocrine: Reports: As per HPI. Denies: Fatigue, Heat or cold intolerance, Polydipsia, Polyuria Gastrointestinal: Reports: As per HPI. Denies: Abdominal pain, Constipation, Diarrhea, Hematemesis, Hematochezia, Melena, Nausea, Vomiting Genitourinary: Reports: As per HPI. Denies: Abnormal menses, Discharge, Dyspareunia, Dysuria, Frequency, Hematuria, Incontinence, Retention, Urgency Musculoskeletal: Reports: As per HPI. Denies: Arthralgia, Back pain, Gout, Joint swelling, Myalgia, Neck pain Skin: Reports: As per HPI. Denies: Bruising, Change in color, Change in hair/ nails, Lesions, Pruritus, Rash Neurological: Reports: As per HPI. Denies: Abnormal gait, Confusion, Headache, Numbness, Paresthesias, Seizure, Tingling, Tremors, Vertigo, Weakness Psychiatric: Reports: As per HPI. Denies: Anxiety, Auditory hallucinations, Depression, Homicidal thoughts, Suicidal thoughts, Visual hallucinations Hematological/Lymphatic: Reports: As per HPI. Denies: Anemia, Blood Clots, Easy bleeding, Easy bruising, Swollen glands Past Medical History - SOCIAL HISTORY Smoking Status: Current every day smoker Alcohol Use: Occasional Drug Use: None - RESPIRATORY Hx Respiratory Disorders: Yes Hx Bronchitis: Yes Comment:: smoker - CARDIOVASCULAR Hx Cardio Disorders: Yes Hx Hypotension: Yes (90/60 is normal) - NEURO Hx Neuro Disorders: Yes Hx of Migraines: Yes (couple times per month, no treatment) - GI Hx GI Disorders: Yes Hx Reflux: Yes Hx Hiatal Hernia: Yes Hx Nausea/Vomiting: Yes (improved with zantac and prilosec) Comment:: some constipation at times - Hx Genitourinary Disorders: No - ENDOCRINE Hx Endocrine Disorders: Yes Hx Thyroid Disease: Yes (hx of overactive thyroid) Comment:: does not take rx for thyroid, is monitiored by labs, last lab 2016 per pt - MUSCULOSKELETAL Hx Musculoskeletal Disorders: No - PSYCH Hx Psych Problems: Yes Hx Anxiety: Yes (stopped rx 1 year ago) Hx Depression: Yes Comment:: stopped medications, has been to counseling, can cope better now - HEMATOLOGY/ONCOLOGY Hx Hematology/Oncology Disorders: No Family Medical History Any Significant Family History?: No Family Hx Comment (NOT TO BE USED IN PLACE OF ITEMS BELOW): none known Hx HTN: Mother, Grandparents Physical Exam - General General Appearance: Alert, Oriented x3, Cooperative, Mild distress - Head Head exam: Normal inspection - Eye Eye exam: Normal appearance, PERRL, EOMI, Other (no fb w lid eversion, no corneal abrasion) Pupils: Normal accommodation With correction: No - ENT ENT exam: Normal exam, Mucous membranes moist, Normal external ear exam, Normal orophraynx, TM's normal bilaterally Ear exam: Normal external inspection. negative: External canal tenderness Nasal Exam: Normal inspection. negative: Discharge, Sinus tenderness Mouth exam: Normal external inspection, Tongue normal Teeth exam: Normal inspection. negative: Dental caries Throat exam: Normal inspection. negative: Tonsillar erythema, Tonsillar exudate - Neck Neck exam: Normal inspection, Full ROM. negative: Tenderness - Respiratory Respiratory exam: negative: Respiratory distress - Cardiovascular Cardiovascular Exam: Regular rate, Normal rhythm, Normal heart sounds - GI/Abdominal GI/Abdominal exam: Soft, Normal bowel sounds. negative: Tenderness - Rectal Rectal exam: Deferred - exam: Deferred - Extremities Extremities exam: Normal inspection, Full ROM, Normal capillary refill. negative: Tenderness - Back Back exam: Reports: Normal inspection, Full ROM. Denies: Muscle spasm, Rash noted, Tenderness - Neurological Neurological exam: Alert, CN II-XII intact, Normal gait, Oriented X3 - Psychiatric Psychiatric exam: Normal affect, Normal mood - Skin Skin exam: Dry, Intact, Normal color, Warm Course Vital Signs 10/11/17 12:44 Temperature 98.3 F Pulse Rate 66 Respiratory 18 Rate Blood Pressure 126/88 Pulse Ox 100 Disposition Disposition: Discharge Clinical Impression: Conjunctivitis Qualifiers: Conjunctivitis type: acute Acute conjunctivitis type: unspecified Laterality: right Qualified Code(s): H10.31 - Unspecified acute conjunctivitis, right eye Disposition: Home, Self-Care Condition: (1) Good Instructions: Conjunctivitis (ED) Additional Instructions: follow up with family doctor. return sooner if worse. Quality - Blood Pressure Screening Does Patient Have Any of the Following: No Blood Pressure Classification: Pre-Hypertensive BP Reading Systolic Measurement: 126 Diastolic Measurement: 88 Screening for High Blood Pressure: < Pre-Hypertensive BP, F/U Documented > [ G8950]
== END 2017-10-11 14:38 | disposition home or self-care (01) ==
LOC: ER 12:37
DX: H10.31 Unspecified acute conjunctivitis, right eye (principal); F17.210 Nicotine dependence, cigarettes, uncomplicated
CPT/HCPCS: 99282

== ENCOUNTER 2017-11-07 09:46 | Emergency (ER) | payer OTHER ==
[2017-11-07] MEDS ORDERED: ONDANSETRON 4 MG ODT TABLET SL ONE (10:07)
--- NOTE | 2017-11-07 10:13 | Emergency Department Record ---
History of Present Illness - General Chief Complaint: Abdominal Pain Stated Complaint: ABD PAIN Time Seen by Provider: 11/07/17 09:57 Source: Patient Mode of Arrival: Ambulatory Limitations: No limitations - History of Present Illness Initial Comments: The patient is here due to AP for one day. The pain is mainly in the RUQ and does intermittently radiate to the LUQ. She did have some nausea and vomiting last night but none today. She denies any lower AP, vaginal discharge, bleeding , dysuria, diarrhea, or back pain. The patient has no hx of abdominal surgeries and her LMP was last week. The patient was initially seen in the [facility] here but due to a WBC of 14.4 with a normal differential she was sent to the ER for further eval. MD Complaint: Abdominal pain Onset/Timin -: Days(s) Location: RUQ Severity: Mild Severity scale (1-10): 5 Quality: Aching Consistency: Constant Improves With: Nothing Worsens With: Vomiting - Related Data LMP Date: 10/28/17 Patient : No Previous Rx's Medication Instructions Recorded Ondansetron [Zofran Odt] 4 mg SL .Q4-6H PRN #12 tab.rapdis 11/07/17 Allergies Allergy/AdvReac Type Severity Reaction Status Date / Time venlafaxine HCl Allergy Intermediate RASH Verified 11/07/17 09:57 [From Effexor] Travel Screening - Travel/Exposure Within Last 30 Days Have you traveled within the last 30 days?: No - Travel/Exposure Within Last Year Have you traveled outside the [place] in the last year?: No - Additonal Travel Details Have you been exposed to anyone with a communicable illness?: No - Travel Symptoms Symptom Screening: None Review of Systems Constitutional: Denies: Chills, Fever Eyes: Denies: Eye discharge ENT: Denies: Congestion, Throat pain Respiratory: Denies: Cough, Dyspnea Past Medical History - SOCIAL HISTORY Smoking Status: Current every day smoker Alcohol Use: Occasional Drug Use: None - RESPIRATORY Hx Respiratory Disorders: Yes Hx Bronchitis: Yes Comment:: smoker - CARDIOVASCULAR Hx Cardio Disorders: Yes Hx Hypotension: Yes (90/60 is normal) - NEURO Hx Neuro Disorders: Yes Hx of Migraines: Yes (couple times per month, no treatment) - GI Hx GI Disorders: Yes Hx Reflux: Yes Hx Hiatal Hernia: Yes Hx Nausea/Vomiting: Yes (improved with zantac and prilosec) Comment:: some constipation at times - Hx Genitourinary Disorders: No - ENDOCRINE Hx Endocrine Disorders: Yes Hx Thyroid Disease: Yes (hx of overactive thyroid) Comment:: does not take rx for thyroid, is monitiored by labs, last lab 2016 per pt - MUSCULOSKELETAL Hx Musculoskeletal Disorders: No - PSYCH Hx Psych Problems: Yes Hx Anxiety: Yes (stopped rx 1 year ago) Hx Depression: Yes Comment:: stopped medications, has been to counseling, can cope better now - HEMATOLOGY/ONCOLOGY Hx Hematology/Oncology Disorders: No Family Medical History Any Significant Family History?: Yes Family Hx Comment (NOT TO BE USED IN PLACE OF ITEMS BELOW): none known Hx HTN: Mother, Grandparents Physical Exam - General General Appearance: Alert, Oriented x3, Cooperative, No acute distress - Head Head exam: Atraumatic, Normocephalic, Normal inspection - Eye Eye exam: Normal appearance, PERRL - Neck Neck exam: Normal inspection, Full ROM. negative: Tenderness - Respiratory Respiratory exam: Normal lung sounds bilaterally. negative: Respiratory distress - Cardiovascular Cardiovascular Exam: Regular rate, Normal rhythm, Normal heart sounds - GI/Abdominal GI/Abdominal exam: Soft, Normal bowel sounds, Tenderness (There is very mild RUQ tenderness to palpation.). negative: Distended, Guarding, Rebound, Rigid - Extremities Extremities exam: Normal inspection, Full ROM, Normal capillary refill. negative: Tenderness - Neurological Neurological exam: Alert. negative: Motor sensory deficit Course Vital Signs 11/07/17 09:48 Temperature 98.2 F Pulse Rate 71 Respiratory 16 Rate Blood Pressure 116/77 Pulse Ox 98 - Reevaluation(s) Reevaluation #1: The patient is doing very well at this time. She is presently sleeping and after waking denies any pain or discomfort. We are still waiting on the US results. 11/07/17 11:43 Reevaluation #2: The patient is doing very well at this time. She denies any pain or discomfort or nausea. On exam her abdomen is very soft and nontender in all 4 quads. I did explain the neg US to her and the need for F/U next week with her PCP. 11/07/17 13:02 Medical Decision Making - Data Complexity MDM Data: Labs Ordered and/or Reviewed, X-Ray Ordered and/or Reviewed (US: Normal per Rad.) Disposition Disposition: Discharge Clinical Impression: Vomiting Qualifiers: Vomiting type: unspecified Vomiting Intractability: non-intractable Nausea presence: without nausea Qualified Code(s): R11.11 - Vomiting without nausea Disposition: Home, Self-Care Condition: (2) Stable Instructions: Abdominal Pain (ED) Additional Instructions: Please take today off work and eat a very bland diet. Please slowly advance your diet this evening and use the Zofran for nausea. Please return to the ER for any return of the AP, fever, or recurrent vomiting. Prescriptions: Ondansetron [Zofran Odt] 4 mg SL .Q4-6H PRN #12 tab.rapdis PRN Reason: Nausea Forms: Patient Portal Access Time of Disposition: 12:58 Quality - Quality Measures Quality Measures: N/A - Blood Pressure Screening View Details: Yes Does Patient Have Any of the Following: No Blood Pressure Classification: Normal BP Reading Systolic Measurement: 106 Diastolic Measurement: 76 Screening for High Blood Pressure: < Normal BP, F/U Not Required > [G8783]
[2017-11-07 10:17] LABS: URINE APPEARANCE CLEAR; URINE BILIRUBIN NEGATIVE (NEGATIVE); URINE COLOR YELLOW; URINE GLUCOSE (UA) NEGATIVE (NEGATIVE); URINE KETONE NEGATIVE (NEGATIVE)
[2017-11-07 10:18] LABS: HCG,QUALITATIVE URINE NEGATIVE (NEGATIVE); URINE BLOOD MODERATE-LYSED (NEGATIVE); URINE LEUKOCYTE ESTERASE NEGATIVE (NEGATIVE); URINE NITRITE NEGATIVE (NEGATIVE); URINE PROTEIN NEGATIVE (NEGATIVE); URINE UROBILINOGEN 0.2 E.U./dL (0.20 - 1.00)
[2017-11-07 10:23] LABS: URINE WBC 0 - 2 (0-2/hpf)
[2017-11-07 10:24] LABS: URINE BACTERIA FEW
--- NOTE | 2017-11-09 16:41 | ULTRASOUND REPORT ---
EXAM: ULTRASOUND ABDOMEN, COMPLETE HISTORY: RIGHT UPPER QUADRANT PAIN. TECHNIQUE: Sonographic evaluation of the abdomen was performed using grayscale imaging. COMPARISON: None. FINDINGS: The liver appears homogeneous. No gallstones or ductal dilatation. Common bile duct measurements are within normal limits. The pancreas and spleen appear normal. 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 The kidneys are normal in size with no hydronephrosis or nephrolithiasis. The abdominal aorta and inferior vena cava are patent. IMPRESSION: UNREMARKABLE ABDOMINAL SONOGRAM. JOB NUMBER: [id number] [facility]
== END 2017-11-07 13:04 | disposition home or self-care (01) ==
LOC: ER 09:46
DX: R11.11 Vomiting without nausea (principal); R10.11 Right upper quadrant pain; F17.210 Nicotine dependence, cigarettes, uncomplicated
CPT/HCPCS: 76700; 81001; 81025; 83690; 86140; 99283; 99284

== ENCOUNTER 2018-07-15 06:34 | Emergency (ER) | payer OTHER ==
[2018-07-15 07:09] LABS: BASO % 0.3 % (0-6); EOS % 1.5 % (0-6); GRAN % 62.6 % (47-80); HEMATOCRIT 41.7 % (35.0-47.0); HEMOGLOBIN 13.9 gm/dl (11.6-16.0); LYMPH % 28.6 % (16-45); MEAN CELL VOLUME 89.9 fl (81-97); MEAN CORPUSCULAR HGB CONC 33.3 g/dl (32-36); MEAN PLATELET VOLUME 9.2 fl (7.4-10.4); PLATELET COUNT 358 K/uL (130-400); RED BLOOD COUNT 4.64 M/uL (3.80-5.40); RED CELL DISTRIBUTION WIDTH 12.5 % (11.5-14.5); WHITE BLOOD COUNT W/O DIFF 16.9 K/uL (4.2-12.2)
[2018-07-15 07:18] LABS: BLOOD UREA NITROGEN 5 mg/dL (6-20); CREATININE 0.6 mg/dL (0.5-0.9); EST GLOMERULAR FILTRATION RATE > 60 mL/min; TOTAL PROTEIN 7.8 g/dL (6.6-8.7)
[2018-07-15 07:19] LABS: LIPASE 32 U/L (13-60)
[2018-07-15 07:20] LABS: GLUCOSE,RANDOM 91 mg/dL (74-109)
[2018-07-15 07:23] LABS: ALB/GLOB RATIO 1.5 (1.1-1.8); ALBUMIN 4.7 g/dL (4.0-5.0); ALKALINE PHOSPHATASE 88 U/L (35-104); ALT/SGPT 18 U/L (<33); AST/SGOT 17 U/L (10.0-35.0)
[2018-07-15] MEDS ORDERED: MAGNESIUM HYDROXIDE/AL HYDROX 30 ML, LIDOCAINE VISC 2% 15ML 15 ML PO ONE ×2 (07:28)
--- NOTE | 2018-07-15 07:39 | Emergency Department Record ---
History of Present Illness - General Chief Complaint: Chest Pain Stated Complaint: CHEST PAIN/AUBREY Time Seen by Provider: 07/15/18 07:23 Source: Patient, RN notes reviewed Mode of Arrival: Ambulatory - History of Present Illness Initial Comments: epigastric chest pain which radiates to the back and is sharp and last for seconds and comes and goes for 1 hour. patient also states her left top of her foot sore and swollen about 5 days ago and has been using motrin 800 mg once a day and also she uses prilosec and zantac for gerd.PSH tubal ligation Onset/Timin -: Minutes(s) Onset: During exertion Pain Location: Epigastric Pain Radiation: Back Severity scale (1-10): 6 Quality: Sharp Consistency: Constant Improves With: Nothing Worsens With: Inspiration, Movement Anginal Symptoms: Diaphoresis, Dyspnea, Nausea - Related Data Home Medications Medication Instructions Recorded Confirmed Last Taken Cholecalciferol (Vitamin D3) 3,000 unit PO DAILY 07/15/18 07/15/18 Unknown [Vitamin D3] Cholecalciferol (Vitamin D3) 50,000 unit PO WEEKLY 07/15/18 07/15/18 Unknown [Vitamin D] Previous Rx's Medication Instructions Recorded Sucralfate [Carafate] 1 gm PO QIDACHS #40 tablet 07/15/18 Allergies Allergy/AdvReac Type Severity Reaction Status Date / Time venlafaxine HCl Allergy Intermediate RASH Verified 07/15/18 06:40 [From Effexor] Travel Screening - Travel/Exposure Within Last 30 Days Have you traveled within the last 30 days?: No - Travel Symptoms Symptom Screening: None Past Medical History - SOCIAL HISTORY Smoking Status: Current every day smoker - RESPIRATORY Hx Respiratory Disorders: Yes Hx Bronchitis: Yes Comment:: smoker - CARDIOVASCULAR Hx Cardio Disorders: Yes Hx Hypotension: Yes (90/60 is normal) - NEURO Hx Neuro Disorders: Yes Hx of Migraines: Yes (couple times per month, no treatment) - GI Hx GI Disorders: Yes Hx Reflux: Yes Hx Hiatal Hernia: Yes Hx Nausea/Vomiting: Yes (improved with zantac and prilosec) Comment:: some constipation at times - Hx Genitourinary Disorders: No - ENDOCRINE Hx Endocrine Disorders: Yes Hx Thyroid Disease: Yes (hx of overactive thyroid) Comment:: does not take rx for thyroid, is monitiored by labs, last lab 2016 per pt - MUSCULOSKELETAL Hx Musculoskeletal Disorders: No - PSYCH Hx Psych Problems: Yes Hx Anxiety: Yes (stopped rx 1 year ago) Hx Depression: Yes Comment:: stopped medications, has been to counseling, can cope better now - HEMATOLOGY/ONCOLOGY Hx Hematology/Oncology Disorders: Yes Comment:: Being tested for an autoimmune problem Family Medical History Any Significant Family History?: Yes Hx HTN: Mother, Grandparents Course Vital Signs 07/15/18 06:40 Temperature 98.3 F Pulse Rate [ 89 Pulse Ox Probe] Respiratory 20 Rate Blood Pressure 116/80 [Left Arm] Pulse Ox 98 - Reevaluation(s) Reevaluation #1: epigastric pain is better after the GI cocktail 07/15/18 08:29 07/15/18 08:34 Medical Decision Making - Data Complexity MDM Data: Labs Ordered and/or Reviewed (trop t neg), X-Ray Ordered and/or Reviewed (chest xray neg), EKG Ordered and/or Reviewed (NSR, no acute changes) - Lab Data Result diagrams: 07/15/18 07:02 07/15/18 07:02 Lab Results 07/15/18 07/15/18 Range/Units 07:02 07:02 WBC 16.9 H (4.2-12.2) K/uL RBC 4.64 (3.80-5.40) M/uL Hgb 13.9 (11.6-16.0) gm/dl Hct 41.7 (35.0-47.0) % MCV 89.9 (81-97) fl MCH 30.0 (27-33) pg MCHC 33.3 (32-36) g/dl RDW 12.5 (11.5-14.5) % Plt Count 358 (130-400) K/uL MPV 9.2 (7.4-10.4) fl Gran % 62.6 (47-80) % Lymphocytes % 28.6 (16-45) % Monocytes % 7.0 (0-9) % Eosinophils % 1.5 (0-6) % Basophils % 0.3 (0-6) % Sodium 140 (136-145) mmol/L Potassium 3.5 (3.4-4.5) mmol/L Chloride 102 (98-107) mmol/L Carbon Dioxide 27.0 (22-29) mmol/L Anion Gap 11.0 (7-16) BUN 5 L (6-20) mg/dL Creatinine 0.6 (0.5-0.9) mg/dL Estimated GFR > 60 mL/min Random Glucose 91 (74-109) mg/dL Calcium 9.5 (8.6-10.0) mg/dL Total Bilirubin 0.20 (0.2-1.0) mg/dL AST 17 (10.0-35.0) U/L ALT 18 (<33) U/L Alkaline Phosphatase 88 (35-104) U/L Troponin T < 0.010 (0-0.010) ng/mL Total Protein 7.8 (6.6-8.7) g/dL Albumin 4.7 (4.0-5.0) g/dL Globulin 3.1 (1.4-4.8) gm/dL Albumin/Globulin Ratio 1.5 (1.1-1.8) Lipase 32 (13-60) U/L Disposition Clinical Impression: Epigastric abdominal pain Gastritis Qualifiers: Gastritis type: unspecified gastritis Chronicity: acute Gastritis bleeding: without bleeding Qualified Code(s): K29.00 - Acute gastritis without bleeding Disposition: Home, Self-Care Condition: (1) Good Instructions: Gastritis (ED) Additional Instructions: follow up with primary Dr in one week increase prilosec to twice a day stop motrin use tylenol for foot pain Prescriptions: Sucralfate [Carafate] 1 gm PO QIDACHS #40 tablet Forms: Patient Portal Access Time of Disposition: 08:42 Quality - Quality Measures Quality Measures: N/A - Blood Pressure Screening Does Patient Have Any of the Following: No Blood Pressure Classification: Pre-Hypertensive BP Reading Systolic Measurement: 116 Diastolic Measurement: 80 Screening for High Blood Pressure: < Pre-Hypertensive BP, F/U Documented > [ G8950] Pre-Hypertensive Follow-up Interventions: Referral to alternative/primary care provider.
[2018-07-15 07:41] LABS: BILIRUBIN,TOTAL < 0.20 mg/dL (0.2-1.0)
[2018-07-15 07:42] LABS: TOTAL PROTEIN 7.7 g/dL (6.6-8.7)
[2018-07-15 07:47] LABS: ALBUMIN 4.6 g/dL (4.0-5.0); ALKALINE PHOSPHATASE 87 U/L (35-104); ALT/SGPT 19 U/L (<33); AST/SGOT 17 U/L (10.0-35.0)
[2018-07-15 07:48] LABS: URINE APPEARANCE CLEAR; URINE BILIRUBIN NEGATIVE (NEGATIVE); URINE BLOOD TRACE-I (NEGATIVE); URINE COLOR YELLOW; URINE GLUCOSE (UA) NEGATIVE (NEGATIVE); URINE KETONE NEGATIVE (NEGATIVE); URINE LEUKOCYTE ESTERASE NEGATIVE (NEGATIVE); URINE NITRITE NEGATIVE (NEGATIVE); URINE PROTEIN NEGATIVE (NEGATIVE); URINE UROBILINOGEN 0.2 E.U./dL (0.20 - 1.00)
[2018-07-15 07:51] LABS: AMPHETAMINE SCREEN URINE NOT DETECTED; BARBITURATE SCREEN URINE NOT DETECTED; BENZODIAZEPINE SCREEN URINE NOT DETECTED; COCAINE SCREEN URINE NOT DETECTED; METHADONE SCREEN URINE NOT DETECTED; METHAMPHETAMINE SCREEN NOT DETECTED; OPIATE SCREEN URINE NOT DETECTED; OXYCODONE SCREEN URINE NOT DETECTED; PHENCYCLIDINE SCREEN URINE NOT DETECTED; PROPOXYPHENE SCREEN URINE NOT DETECTED; THC SCREEN URINE NOT DETECTED; TRICYCLIC ANTIDEPRESSANT SCRN NOT DETECTED
[2018-07-15 07:54] LABS: URINE BACTERIA FEW; URINE WBC 0 - 2 (0-2/hpf)
[2018-07-15 07:58] LABS: BILIRUBIN,DIRECT < 0.2 mg/dL (0-0.3)
--- NOTE | 2018-07-16 12:31 | RADIOLOGY REPORT ---
EXAM: CHEST, TWO VIEWS HISTORY: MIDLINE CHEST PAIN. TECHNIQUE: Two views of the chest were obtained. Comparison: Chest and rib series radiographs done 02/09/17. FINDINGS: The cardiac silhouette is within normal size limits. No focal pulmonary consolidation. No pleural effusion or pneumothorax. IMPRESSION: NO ACUTE LUNG FINDINGS. JOB NUMBER: [id number] [facility]
== END 2018-07-15 08:55 | disposition home or self-care (01) ==
LOC: ER 06:34
DX: K29.00 Acute gastritis without bleeding (principal); R10.13 Epigastric pain; R07.9 Chest pain, unspecified; R11.0 Nausea; R06.00 Dyspnea, unspecified; R61 Generalized hyperhidrosis; I10 Essential (primary) hypertension; F17.210 Nicotine dependence, cigarettes, uncomplicated
CPT/HCPCS: 71046; 80053; 80076; 80305; 81001; 81025; 83690; 84484; 85025; 93005; 93010; 99284

== ENCOUNTER 2018-08-27 12:16 | Day surgery (SDC) | payer OTHER ==
[2018-08-27] MEDS ORDERED: PROPOFOL 10 MG/ML VIAL IV ONE (12:17)
[2018-08-27] MEDS ORDERED: LIDOCAINE 2% MDV (20MG/ML) 20ML VIAL IV ONE (12:17)
--- NOTE | 2018-08-28 07:51 | Operative Note ---
DATE OF SURGERY: 08/27/2018 OPERATION: COLONOSCOPY with cold snare polypectomy. PREOPERATIVE DIAGNOSIS: Abdominal pain and alternating bowel habits. POSTOPERATIVE DIAGNOSES: 1. Colonic diverticulosis, left-sided greater than right. 2. Sigmoid colon polyp. PREPARATION QUALITY: Excellent. ESTIMATED BLOOD LOSS: Minimum. SPECIMENS: Sigmoid polyp. COMPLICATIONS: None apparent. PROCEDURE: After informed consent was obtained from the patient, she was placed in the left lateral decubitus position in the endoscopy suite, sedated and monitored by the department of anesthesia. Digital rectal examination was unremarkable. A well-lubricated [id number] colonoscope was inserted into the rectum and advanced to the cecum. The ileocecal valve, appendiceal orifice, distal portion of the terminal ileum, ascending colon, transverse colon, descending colon, sigmoid colon, and rectum were carefully inspected. There were scattered diverticula throughout the ascending colon, descending colon, and sigmoid colon but most notably found in the sigmoid colon. There was a 5-6 mm sessile polyp noted in the sigmoid colon which was removed with a cold snare. Minimal bleeding was noted. The remainder of the sigmoid colon and rectum were unrevealing. J-turn views of the anorectum were unremarkable. The endoscope was straightened, the rectal ampulla deflated, and the endoscope was removed. RECOMMENDATIONS: The patient should follow a high-fiber diet and use a fiber supplement such as BeneFiber or Citrucel daily. We will await the results of tissue histology and plan to see the patient in followup in 6 weeks. As always, thank you for allowing me to participate in the healthcare of your patients. CC: ZEINA Machuca
== END 2018-08-27 14:20 | disposition home or self-care (01) ==
LOC: HOP 12:16
PROVIDERS: ATTEND Internal Medicine Gastroenterology
DX: R10.9 Unspecified abdominal pain (principal); R19.4 Change in bowel habit; K63.5 Polyp of colon; K57.30 Diverticulosis of large intestine without perforation or abscess without bleeding; K21.9 Gastro-esophageal reflux disease without esophagitis